=== PATIENT | female | born 1985 | race Caucasian/White ===

== ENCOUNTER 2020-10-21 15:14 | Inpatient (IN) | payer OTHER ==
[2020-10-21 16:55] LABS: BILIRUBIN NEGATIVE (NEGATIVE); BLOOD NEGATIVE Ery/uL (NEGATIVE); CLARITY CLEAR (CLEAR); COLOR YELLOW (YELLOW); GLUCOSE (U) NORMAL (NORMAL); LEUKOCYTES NEGATIVE Leu/uL (NEGATIVE); NITRITE NEGATIVE (NEGATIVE); PROTEIN 1+ mg/dL (NEGATIVE); UROBILINOGEN 0.2 mg/dL (0.2-1.0)
[2020-10-21 16:58] LABS: BACTERIA 2+; CALCIUM OXALATE CRYSTALS TRACE; MUCOUS MODERATE
[2020-10-21 17:08] LABS: AMPHETAMINES NEGATIVE (NEGATIVE); BARBITURATES NEGATIVE (NEGATIVE); ECSTASY (MDMA) NEGATIVE (NEGATIVE); MARIJUANA (THC) NEGATIVE (NEGATIVE); METHADONE NEGATIVE (NEGATIVE); OPIATES NEGATIVE (NEGATIVE); OXYCODONE NEGATIVE (NEGATIVE)
[2020-10-21 17:41] LABS: HCT 35.8 % (37.0-47.0); HGB 12.3 g/dl (12.5-16.0); MCH 28.5 pg (25.0-31.0); MCHC 34.4 g/dL (32.0-36.0); MCV 83.1 fL (78.0-100.0); MPV 9.2 fL (6.0-9.5); RBC 4.31 M/uL (4.20-5.40); RDW 12.6 % (11.5-14.0); WBC 8.7 K/uL (4.0-10.5)
[2020-10-21 17:55] LABS: PROTEIN:CREATININE 0.23 RATIO; URINE CREATININE 206.32 mg/dL (29.00-226.00)
[2020-10-21 18:02] LABS: ALBUMIN 2.4 g/dL (3.4-5.0); BILIRUBIN - TOTAL 0.4 mg/dL (0.2-1.0); BUN/CREAT RATIO (CALC) 9.1 RATIO; CREATININE 0.44 mg/dL (0.51-0.95); GLOBULIN (CALCULATION) 3.9 g/dL; POTASSIUM 3.3 mmol/L (3.5-5.1); TOTAL PROTEIN 6.3 g/dL (6.4-8.2); URIC ACID 3.5 mg/dL (2.6-6.2)
[2020-10-22 09:40] LABS: HCT 31.3 % (37.0-47.0); HGB 10.8 g/dl (12.5-16.0); MCHC 34.5 g/dL (32.0-36.0); MCV 83.9 fL (78.0-100.0); RBC 3.73 M/uL (4.20-5.40); RDW 12.7 % (11.5-14.0); WBC 9.9 K/uL (4.0-10.5)
[2020-10-23 13:40] LABS: BILIRUBIN NEGATIVE (NEGATIVE); BLOOD TRACE-INTACT Ery/uL (NEGATIVE); CLARITY CLEAR (CLEAR); COLOR YELLOW (YELLOW); GLUCOSE (U) NORMAL (NORMAL); LEUKOCYTES NEGATIVE Leu/uL (NEGATIVE); NITRITE NEGATIVE (NEGATIVE); PROTEIN NEGATIVE (NEGATIVE); SPECIFIC GRAVITY 1.025 (1.001-1.030); UROBILINOGEN 0.2 mg/dL (0.2-1.0)
[2020-10-23 13:48] LABS: URINARY WBC RARE
[2020-10-24] MEDS ORDERED: ATARAX25 MG PO (09:59)
== END 2020-10-24 18:09 | disposition home or self-care (01) | DRG 785 ==
LOC: FOD 15:14 → FOB 15:16 → FOD 19:33 → FOB 19:34
PROVIDERS: Obstetrics & Gynecology; ADMIT Obstetrics & Gynecology
PROC: 0UT70ZZ Resection of Bilateral Fallopian Tubes, Open Approach (ICD-10-PCS; 2020-10-21)
PROC: 4A1HX4Z Monitoring of Products of Conception, Cardiac Electrical Activity, External Approach (ICD-10-PCS; principal; 2020-10-21 09:30)
PROC: 10D00Z1 Extraction of Products of Conception, Low, Open Approach (ICD-10-PCS; 2020-10-21 09:30)
DX: O13.4 Gestational [pregnancy-induced] hypertension without significant proteinuria, complicating childbirth (principal); Z3A.37 37 weeks gestation of pregnancy; Z37.0 Single live birth; O34.211 Maternal care for low transverse scar from previous cesarean delivery; N85.8 Other specified noninflammatory disorders of uterus; O99.214 Obesity complicating childbirth; E66.01 Morbid (severe) obesity due to excess calories; O99.344 Other mental disorders complicating childbirth; F41.9 Anxiety disorder, unspecified; Z80.9 Family history of malignant neoplasm, unspecified; O99.824 Streptococcus B carrier state complicating childbirth; Z20.822 Contact with and (suspected) exposure to COVID-19; Z62.810 Personal history of physical and sexual abuse in childhood; O99.02 Anemia complicating childbirth; D64.9 Anemia, unspecified
CPT/HCPCS: 36415; 80053; 80305; 81001; 82570; 83615; 84156; 84550; 86850; 86900; 86901; 87088; J0456; J0690; J1100; J1200; J1650; J1885; J2250; J2274; J2405; J3010; J3410; J7050; J7120; P9612; U0002

== ENCOUNTER → 2021-07-29 | Day surgery (SDC) | payer OTHER ==
[~2021-07-29] VITALS: Ht 168 cm; Wt 136.0 kg
[~2021-07-29] MED LIST: ACETAMINOPHEN325 MG PO; ASCORBIC ACID500 MG PO; ATARAX25 MG PO; CALCIUM + D3 E1 EACH PO; IBUPROFEN800 M1 PO; PRENATAL FORMU1 EACH PO; VITAMIN D31250 MCG PO; ZINC30 MG PO
[2021-07-29 08:24] LABS: HCG (URINE) SCREEN NEGATIVE (NEGATIVE)
== END | disposition home or self-care (01) ==
LOC: FAS 07-22 08:00
PROVIDERS: Obstetrics & Gynecology
DX: N93.9 Abnormal uterine and vaginal bleeding, unspecified (principal); E66.01 Morbid (severe) obesity due to excess calories; Z68.43 Body mass index [BMI] 50.0-59.9, adult; Z91.410 Personal history of adult physical and sexual abuse; Z88.1 Allergy status to other antibiotic agents; Z79.899 Other long term (current) drug therapy
CPT/HCPCS: 84703; 93005; J1885; J2250; J2405; J2704; J3010; J7120